=== PATIENT | female | born 1985 | race Caucasian/White ===

== ENCOUNTER 2016-12-12 09:15 | Emergency (ER) | payer OTHER ==
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
--- NOTE | 2016-12-12 10:40 | RADIOLOGY REPORT ---
Trauma series of the cervical spine demonstrates straightening of the cervical spine. No displaced fracture or subluxation or other abnormality is identified. The disk spaces and soft tissues appear unremarkable. IMPRESSION: Straightening of the cervical spine. No displaced injury is identified. If clinically indicated, further evaluation and/or follow-up may be of benefit. SIDRA
--- NOTE | 2016-12-12 10:41 | RADIOLOGY REPORT ---
Three views of the lumbar spine demonstrate no displaced fracture or subluxation. The disk spaces and soft tissues appear unremarkable. IMPRESSION: No displaced injury is identified. If clinically indicated, further evaluation and/or follow-up may be of benefit. SIDRA
== END 2016-12-12 10:35 | disposition home or self-care (01) ==
LOC: ER 09:15
DX: S16.1XXA Strain of muscle, fascia and tendon at neck level, initial encounter (principal); M54.5 Low back pain; R51 Headache; V43.62XA Car passenger injured in collision with other type car in traffic accident, initial encounter
CPT/HCPCS: 72040; 72100; 99283